=== PATIENT | female | born 1995 | race Caucasian/White ===

== ENCOUNTER 2020-12-07 06:22 | Emergency (ER) | payer MEDICAID ==
[~2020-12-07] VITALS: Ht 162.6 cm; Wt 54.5 kg
[~2020-12-07 06:22] MED LIST: BACTRIM; BC PATCH; [UNRECOGNIZED DRUG - REMARK]
[2020-12-07 06:42] VITALS: BP 123/83
--- NOTE | 2020-12-07 07:25 | NUR ---
I WAS IN THE PROCESS OF PERFORMING A SEND OUT CHEN MENDOZA. I ENTERED THE LEFT NARE, BECAUSE SHE HAD A NOSE RING IN THE RIGHT NARE. JUST THE SWAB WAS PASSING THROUGH THE NARROW AREA. THE PT. STARTED PULLING BACK. I SAID WE ARE NOT THERE YET. PT. PULLED HER HEAD BACK FURTHER AND PUT HE HAND UP ON MINE AND PUSHED THE SWAB AWAY FROM HER FACE. I EXPLAIND THAT I WAS GOING SLOW AND GENTAL POSSIBLE.... PT. ADAMANTLY REFUSED TO HAVE THE SWAB DONE. I WAITED A FULL MINUTE WITH SWAB IN HAND TO SEE IF SHE WOULD CHANGE HER MIND... AFTER THAT I THROUGH THE TEST AND SWAB AWAY.
== END 2020-12-07 07:38 | disposition home or self-care (01) ==
LOC: ER 06:23
DX: U07.1 COVID-19 (principal); R43.8 Other disturbances of smell and taste; R06.02 Shortness of breath; R05 Cough
CPT/HCPCS: 99282